=== PATIENT | female | born 1995 ===

== ENCOUNTER 2016-10-17 10:31 | Emergency (ER) | payer MEDICAID ==
[~2016-10-17] VITALS: Ht 167.6 cm; Wt 81.8 kg
[2016-10-17 10:47] VITALS: BP 115/74; RESP 18; O2SAT 97
--- NOTE | 2016-10-17 12:24 | ED.REPORT ---
HPI-General Illness Date of Service Oct 17, 2016 ED Provider: Jarrett Swanson DO The patient is a 20 year old otherwise healthy female who presents to the emergency department complaining of a sore throat that began yesterday. She has also noticed throat swelling which she states has made it difficult to swallow and breathe. She also reports fever, chills, runny nose, headache, bilateral ear pain, mild shortness of breath, and abdominal cramping. She smokes tobacco and marijuana. She is allergic to sulfa. Nursing Notes Stated Complaint: SORE THROAT Chief Complaint: ENT & Mouth Nursing Notes Reviewed: Yes Allergies: Uncoded Allergies: ANTIBIOTIC (Allergy, Unknown, 10/17/16) Scheduled Prednisone (PredniSONE) 20 Mg Tablet 20 MG PO DAILY Scheduled PRN Naproxen (Naproxen) 500 Mg Tab 500 MG PO BID PRN PRN For Pain General Time Seen by MD: 12:23 Chief Complaint Sore throat Hx Obtained From: Patient Arrived By: Walk-in Sudden in Onset?: Yes Onset Occurred: Yesterday Symptom Duration: Since onset Location: : Head: Mouth (throat) Quality: Painful Severity: Current: Moderate Severity: Maximum: Moderate Recent Healthcare: No recent hospitalization Similar Sx Previous: No Past Medical History Past Medical History None Past Surgical History None Family History Reports: Coronary artery disease, Diabetes mellitus Smoking History Current Every Day Smoker Social History Alcohol Use: "Social" Drug Use: THC Other Social History: Good social support Ambulatory Status Independent Review of Systems Full Review of Systems Constitutional: Reports: Chills, Fever Ears / Nose / Throat: Reports: Earache bilateral, Nasal congestion, Sore throat , Throat swelling Respiratory: Reports: Shortness of breath GI: Reports: Abdominal pain Allergy / Immune: Reports: Rhinorrhea Neurologic: Reports: Headache Complete sys rev & neg: except as marked. Physical Exam Vital Signs Vital Signs Date Time Temp Pulse Resp B/P Pulse Ox O2 Delivery O2 Flow Rate FiO2 10/17/16 14:24 107 15 120/75 95 Room Air 10/17/16 10:47 36.4 92 18 115/74 97 Room Air Initial VS: Reviewed Head / Eyes: Atraumatic, Normocephalic, PERRL Respiratory: Breath sounds normal, Clear to auscultation, No respiratory distress Cardiovascular: Regular rate & rhythm, Heart sounds normal, Intact distal pulses Abdomen / GI: Soft, Non-tender, No guarding, No rebound, No distention Extremities: Vascular intact, Neuro intact, No swelling, No tenderness Skin: Warm, Dry, No cyanosis Neurologic: Alert, Oriented, Nonfocal Psychiatric: Mood/affect normal, Behavior normal, Normal thought content General/Constitutional: Awake, Alert, No acute distress, Cooperative ENT: Airway patent, Mucous membranes moist Pharynx / Tonsils / Uvula: Positive: Pharyngeal erythema, Tonsillar erythema L , Tonsillar erythema R, Tonsillar exudate L, Tonsillar exudate R, Tonsillar swelling L, Tonsillar swelling R, Negative: Peritonsil abscess L, Peritonsil abscess R Right Ear / Mastoid: Positive: Tympanic membrane red Left Ear / Mastoid: Positive: Tympanic membrane red Neck: No meningismus, Non-tender, No midline vertebral tend Cervical lymphadenopathy without tenderness Interpretation & Diagnostics Interpretation & Diagnostics: Strep test positive Re-Eval/Medical Decision Med Decision/Clinical Course Strep throat without obvious deep space abscess or peritonsillar abscess. Clinically very well-appearing will be treated with dexamethasone and naproxen. Bicillin long-acting given in the ER. Return precautions given. Source of Hx: Old records Time of Eval: 12:55 Re-Evaluation/Progress Note: Rechecked the patient. She is drinking a coffee and appears comfortable. Time of Eval: 14:05 Re-Evaluation/Progress Note: Rechecked the patient. Discussed lab results and diagnosis. All questions were addressed. Counseled Regarding: Diagnosis, Lab results, Need for follow-up, When/why to return to ED Discharge & Departure Primary Impression: Pharyngitis Pharyngitis/tonsillitis etiology: streptococcus Qualified Code: J02.0 - Streptococcal pharyngitis Disposition: Home Discharge Condition All VS Reviewed: Yes Condition: Stable Patient Instructions: Strep Throat (ED) Additional Instructions: Thank you for entrusting us with your care today. Your exam findings and test results are consistent with strep throat. You were given an antibiotic injection that should take care of this. Take the steroid as prescribed. You can also use Naproxen as needed for your discomfort. Followup with your regular doctor if your symptoms continue. Return to the emergency department for inability to tolerate oral intake, severe uncontrolled pain, difficulty breathing, or concerning symptoms. Referrals: [facility] ([facility]) Scribe Attestation Portions of this note were transcribed by Hetal Platt. I, Dr. Swanson personally performed the history, physical exam and medical decision-making; I reviewed and confirmed the accuracy of the information in the transcribed note. Signed by: Esthela Enriquez, 10/17/2016 and 1415. copies to: [email or web address] Jarrett Weston DO Oct 17, 2016 12:24 Hetal Platt Oct 17, 2016 12:31
[2016-10-17] MEDS ORDERED: PRE20 PO (14:08)
[2016-10-17] MEDS ORDERED: NPR500T PO (14:08)
[2016-10-17 14:24] VITALS: BP 120/75; PULSE 107; RESP 15; O2SAT 95
== END 2016-10-17 14:24 | disposition home or self-care (01) ==
LOC: SED 10:31
DX: J02.0 Streptococcal pharyngitis (principal); F17.200 Nicotine dependence, unspecified, uncomplicated; Z88.1 Allergy status to other antibiotic agents; Z88.2 Allergy status to sulfonamides
CPT/HCPCS: 87880; 96372; 99284; J0561